=== PATIENT | male | born 1995 | race Caucasian/White ===

== ENCOUNTER 2019-07-05 09:18 | Inpatient (IN) | payer BC ==
[~2019-07-05] VITALS: Ht 170.2 cm; Wt 100.0 kg
[~2019-07-05 09:18] MED LIST: AMOX1TAB10 PO; BUPR300T4 PO; ESCI10TA PO; IBUP800T48 PO; ONDA4TAB14 PO
[2019-07-05 09:31] VITALS: Ht 170.2 cm; Wt 100.0 kg
[2019-07-05] MEDS ORDERED: SOD CHLORIDE 0.9% 1,000 ML IV STA (10:41)
[2019-07-05] MEDS ORDERED: ACETAMINOPHEN 325 MG TAB PO PRN ×2 (14:00)
[2019-07-05] MEDS ORDERED: NACL 0.9% 3 ML SYG IV SCH (14:00)
[2019-07-05] MEDS ORDERED: KETOROLAC 15 MG INJ IV PRN (14:00)
[2019-07-05] MEDS ORDERED: traMADol 50 MG TAB PO PRN (14:00)
[2019-07-05] MEDS ORDERED: ONDANSETRON 4 MG INJ IV PRN ×2 (14:00)
[2019-07-05] MEDS: SOD CHLORIDE 0.9% 1,000 ML IV SCH ×4 (14:07→22:38)
[2019-07-05 15:31] VITALS: BP 128/73; PULSE 74; RESP 18
[2019-07-05 19:10] VITALS: BP 119/68; PULSE 69; RESP 16
[2019-07-05] MEDS: FAMOTIDINE 20 MG TAB PO SCH (21:25)
[2019-07-05] MEDS: BUPROPION (XL) 150 MG TAB PO SCH (21:25)
[2019-07-05] MEDS: ESCITALOPRAM 10 MG TAB PO SCH (21:25)
[2019-07-06 02:30] VITALS: BP 116/69; PULSE 75; RESP 18
[2019-07-06] MEDS: SOD CHLORIDE 0.9% 1,000 ML IV SCH ×5 (03:14→21:33)
[2019-07-06 07:17] VITALS: BP 126/77; PULSE 71; RESP 18
[2019-07-06] MEDS: FAMOTIDINE 20 MG TAB PO SCH ×2 (08:18→20:23)
[2019-07-06 19:10] VITALS: BP 134/72; PULSE 79; RESP 18
[2019-07-06] MEDS: BUPROPION (XL) 150 MG TAB PO SCH (20:23)
[2019-07-06] MEDS: ESCITALOPRAM 10 MG TAB PO SCH (20:23)
[2019-07-07 01:30] VITALS: BP 122/73; PULSE 67; RESP 18
[2019-07-07] MEDS: SOD CHLORIDE 0.9% 1,000 ML IV SCH ×2 (01:57→05:46)
[2019-07-07 07:54] VITALS: BP 124/76; PULSE 71; RESP 18
[2019-07-07] MEDS: FAMOTIDINE 20 MG TAB PO SCH (08:42)
== END 2019-07-07 09:34 | disposition home or self-care (01) | DRG 558 ==
LOC: FTE 09:18 → MS1 13:34
PROVIDERS: ADMIT Internal Medicine; ATTEND Internal Medicine
DX: M62.82 Rhabdomyolysis (principal); F32.9 Major depressive disorder, single episode, unspecified; F41.9 Anxiety disorder, unspecified; F17.200 Nicotine dependence, unspecified, uncomplicated; R74.0 Nonspecific elevation of levels of transaminase and lactic acid dehydrogenase [LDH]
CPT/HCPCS: 80053; 81001; 82550; 83735; 85025; 97161; J1885; J7030